=== PATIENT | female | born 1995 | race Caucasian/White ===

== ENCOUNTER → 2018-06-21 | Outpatient (CLI) | payer BC | LOC: M RAD 12:54 | DX: E01.0 Iodine-deficiency related diffuse (endemic) goiter (principal) | CPT/HCPCS: 78012 ==

== ENCOUNTER → 2018-10-28 | Outpatient (REF) | payer BC | LOC: M LAB REF 15:58 | PROVIDERS: ATTEND Physician Assistant | DX: A08.4 Viral intestinal infection, unspecified (principal) ==

== ENCOUNTER → 2019-01-03 | Outpatient (REF) | payer BC | LOC: M SFHCLERA 19:00 | PROVIDERS: ATTEND Physician Assistant | DX: J02.9 Acute pharyngitis, unspecified (principal) ==

== ENCOUNTER 2020-04-24 20:25 | Emergency (ER) | payer OTHER, BC ==
[~2020-04-24] VITALS: Ht 167.6 cm; Wt 120.5 kg
[2020-04-24 20:25] VITALS: BP 133/81
[2020-04-24] MEDS ORDERED: CITA10TA5 (20:31)
== END 2020-04-24 21:10 | disposition home or self-care (01) ==
LOC: M ED 20:25
DX: S09.90XA Unspecified injury of head, initial encounter (principal); W22.09XA Striking against other stationary object, initial encounter; Y92.9 Unspecified place or not applicable